=== PATIENT | male | born 1975 | race Caucasian/White ===

== ENCOUNTER 2021-01-30 02:42 | Emergency (ER) | payer SELFPAY ==
[2021-01-30] MEDS ORDERED: Aspirin 81 MG Tab.Chew PO ONE (02:53)
[2021-01-30] MEDS ORDERED: Nitroglycerin 0.4 MG Tab.SL SL ONE (02:53)
[2021-01-30] MEDS ORDERED: Morphine 4 MG/ML Syringe IVPUSH ONE (02:53)
[2021-01-30] MEDS ORDERED: Ondansetron 4 MG/2 ML SDV IVPUSH ONE (03:08)
[2021-01-30] MEDS ORDERED: HYDROmorphone 1 MG/ML Syringe IVPUSH ONE ×4 (03:21→13:45)
[2021-01-30 03:31] LABS: BLOOD UREA NITROGEN,BUN 10 mg/dL (7.0-18.0); CARBON DIOXIDE,CO2 25.3 mmol/L (21.0-32.0); CHLORIDE,CL 98 mmol/L (98-107); GLUCOSE RANDOM 127 mg/dL (74-106); SODIUM,NA 133 mmol/L (136-148)
[2021-01-30] MEDS ORDERED: Iopamidol 755 Mg/ML 100 ML Bottle IVPUSH ONE (04:32)
--- NOTE | 2021-01-30 04:46 | CR ---
Indication: Chest pain Technique: Chest 1 view Comparison: None Findings/Impression: Cardiovascular and mediastinum: Heart size and vasculature are normal in caliber and appearance. Lungs and pleural space: No pleural effusion or pneumothorax. No focal consolidation. Bones and soft tissues: No acute findings. Dictated by Juice Guzmán MD @ 01/30/2021 4:46:11 AM (Electronically Signed)
--- NOTE | 2021-01-30 06:11 | EDM.PDOC ---
<Duong Duckworth - Last Filed: 01/30/21 06:49> ED HPI GENERAL MEDICAL PROBLEM - General Chief Complaint: Chest Pain Stated Complaint: CHEST PAIN Time Seen by Provider: 01/30/21 02:51 - History of Present Illness INITIAL COMMENTS - FREE TEXT/NARRATIVE: CHIEF COMPLAINT(S): Chest pain HISTORY OF PRESENT ILLNESS: This is a 45-year-old man without any significant past medical history who comes to the emergency department with a chief complaint of chest pain. The patient states that prior to arrival he started to experience chest pain which he describes as sharp, stabbing on the left side of his chest without any radiation. He states that it is constant and unrelenting. He states that he does not have any shortness of breath, diaphoresis, nausea or vomiting. He denies any melena or hematochezia. He denies any hematemesis or hemoptysis. He denies any recent travel, recent surgery or prior history of DVT or PE. He states that he was seen at the clinic and was given baclofen however that does not seem to be helping him. He states that the clinic told him to come into the emergency department for evaluation but he did not come in. He states in addition to this he has been experiencing a rash throughout his body which has been happening over the last 4 days. He denies any fevers, chills, cough, headache, neck pain or any other symptoms. REVIEW OF SYSTEMS: Constitutional: Denies fever, chills. Eyes: Denies eye pain Ears, Nose, Mouth, & Throat: Denies earache Cardiovascular: Positive for chest pain Respiratory: Denies shortness of breath Gastrointestinal: Denies Nausea, vomiting, diarrhea, hematochezia. Genitourinary: Denies hematuria Skin: Positive for rash MSK: Denies joint pain Neurological: Denies blurred vision Psychiatric: Denies depression PAST MEDICAL HISTORY: As per history of present illness and as reviewed below otherwise noncontributory. SURGICAL HISTORY: As per history of present illness and as reviewed below otherwise noncontributory. SOCIAL HISTORY: As per history of present illness and as reviewed below otherwise noncontributory. FAMILY HISTORY: As per history of present illness and as reviewed below otherwise noncontributory. EXAMINATION OF ORGAN SYSTEMS/BODY AREAS: Constitutional: Blood pressure was 148/113, heart rate 87, respiratory rate 24 with an oxygen saturation 100% on room air. Temperature 36.0 General: Young man who appears to be in a severe amount of pain. Psychiatric: Appropriate mood and affect. Eyes: No scleral icterus or conjunctival erythema ENMT: Moist mucous membranes. No pharyngeal erythema Cardiovascular: Regular, rate, and rhythm. No gallops, murmurs, or rubs. Bilateral upper extremity pulses symmetric and intact. No peripheral edema. No JVD. Respiratory: Lungs clear to auscultation bilaterally. No wheezes, rales, or rhonchi. Gastrointestinal: Soft, non-tender, non-distended. Normoactive bowel sounds Genitourinary: No suprapubic tenderness Musculoskeletal: Normal range of motion. Skin: There is a petechial rash throughout out the patient's entire body. Scattered purpura which is nontender and nonpalpable. Neurological: Alert, GCS 15 MEDICAL DECISION MAKING AND COURSE IN THE ED WITH INTERPRETATION/REVIEW OF DIAGNOSTIC STUDIES: This is a 45-year-old man without any significant past medical history who comes to the emergency department with acute onset severe chest pain with a petechial rash. At this time it is uncertain as to what is causing the patient's chest pain however given the patient's symptoms will obtain a cardiac work-up. In addition to this given the petechial rash will obtain coags and a CBC. EKG was obtained which did not reveal any acute signs of ischemia. Obtain a chest x-ray. Given the severe distress and pain that it patient is experiencing will obtain a CT angiogram of the chest, abdomen and pelvis for further evaluation of a possible dissection. We did provide the patient with 4 mg of IV morphine for pain. We will provide the patient with n itroglycerin 0.4 mg sublingual given the possibility of ACS. We will hold off on aspirin at this time given the possibility of dissection. The patient had some nausea with the morphine therefore we will provide the patient with 4 mg of IV Zofran. Patient continued to have severe amount of pain therefore we will provide the patient with 1 mg of Dilaudid. Laboratory: CBC reveals a leukocytosis of 13.25 with lymphocytic predominance. There is thrombocytopenia with a platelet count of 1. BMP reveals hyponatremia at 133, hyperglycemia at 127, hypocalcemia at 8.1 otherwise unremarkable. TSH i s normal. Troponin is negative. After CBC had resulted I did send off labs including coags, fibrinogen, D-dimer, LDH, liver function tests and a mono screen. Laboratory: D-dimer is elevated at 1.95, INR is 1.14, PTT is 28.3, fibrinogen is normal at 310. LDH is elevated at 441. [place] screen is negative. There is a transaminitis with an AST of 78, ALT of 143 and alkaline phosphatase of 125. Given the transaminitis and the lymphocytic predominance on CBC will obtain a hepatitis panel. The radiological images were viewed by myself along with reading the report from the radiologist. Chest x-ray does not reveal any acute cardiopulmonary process. On reevaluation the patient had continued abdominal pain therefore we will provide the patient with an additional dose of 1 mg of Dilaudid. I did discuss the results of his laboratory work-up at this time. [facility] pending CTA reads and final disposition. DISPOSITION: [facility] pending CTA reads and final disposition CONDITION: Serious PROCEDURES: None FINAL IMPRESSION(S)/DIAGNOSES: 1. Acute chest pain 2. Acute thrombocytopenia, likely secondary to ITP Duong Duckworth M.D. Left Chest Pain Score (Numeric/FACES): 10 - Related Data Allergies Allergy/AdvReac Type Severity Reaction Status Date / Time No Known Allergies Allergy Verified 01/30/21 02:59 Past Medical History - Past Health History Medical/Surgical History: Denies Medical/Surgical History - Infectious Disease History Infectious Disease History: Reports: Chicken Pox Social & Family History - Family History Family Medical History: No Pertinent Family History - Caffeine Use Caffeine Use: Reports: None - Recreational Drug Use Recreational Drug Type: Reports: Marijuana/Hashish Departure - Departure Disposition: DC/Tfer to [facility] 02 Clinical Impression: Acute ITP - Discharge Information Referrals: PCP,None [Primary Care Provider] - Forms: ED Department Discharge <Edward Og - Last Filed: 01/30/21 12:39> ED ROS GENERAL - Review of Systems Review Of Systems: Comprehensive ROS is negative, except as noted in HPI. ED EXAM, GENERAL - Physical Exam Exam: See Below Course - Vital Signs Last Recorded V/S: Last Vital Signs Temp 96.8 F L 01/30/21 03:00 Pulse 94 01/30/21 10:20 Resp 18 10/03/21 10:20 BP 128/94 H 10/03/21 10:20 Pulse Ox 95 01/30/21 10:20 - Orders/Labs/Meds Orders: Active Orders 24 hr Category Date Time Status Cardiac Monitoring [RC] . DIRECTED Care 01/30/21 02:49 Active Pulse Oximetry [RC] ASDIRECTED Care 01/30/21 02:49 Active HEPATITIS PANEL (4) [REF] Stat Lab 01/30/21 06:04 Received UA W/AHMET RFLX IF INDICATED [URIN] Stat Lab 01/30/21 10:26 Ordered Labs: Laboratory Tests 01/30/21 01/30/21 01/30/21 Range/Units 02:55 02:55 02:55 WBC 13.25 H (4.0-11.0) K/uL RBC 4.69 (4.50-5.90) M/uL Hgb 14.4 (13.0-17.0) g/dL Hct 40.4 (38.0-50.0) % MCV 86.1 (80.0-98.0) fL MCH 30.7 (27.0-32.0) pg MCHC 35.6 (31.0-37.0) g/dL RDW Std Deviation 38.8 (28.0-62.0) fl RDW Coeff of Kade 12 (11.0-15.0) % Plt Count 1 L* (150-400) K/uL Add Manual Diff YES Neutrophils % (Manual) 35 L (48.0-80.0) % Band Neutrophils % 4 % Lymphocytes % (Manual) 56 H (16.0-40.0) % Monocytes % (Manual) 4 (0.0-15.0) % Eosinophils % (Manual) 1 (0.0-7.0) % Nucleated RBC % 0.0 /100WBC Absolute Seg Neuts 4.6 (1.4-5.7) Band Neutrophils # 0.5 Lymphocytes # (Manual) 7.4 H (0.6-2.4) Monocytes # (Manual) 0.5 (0.0-0.8) Eosinophils # (Manual) 0.1 (0.0-0.7) Nucleated RBCs # 0 K/uL Smear Path Review INR APTT (18.6-31.3) SEC Fibrinogen (215-411) mg/dL D-Dimer, Quantitative (0.0-0.50) mg/L FEU Sodium 133 L (136-148) mmol/L Potassium 4.0 (3.5-5.1) mmol/L Chloride 98 (98-107) mmol/L Carbon Dioxide 25.3 (21.0-32.0) mmol/L BUN 10 (7.0-18.0) mg/dL Creatinine 1.1 (0.8-1.3) mg/dL Est Cr Clr Drug Dosing 89.41 mL/min Estimated GFR (MDRD) > 60.0 ml/min Glucose 127 H (74-106) mg/dL Calcium 8.1 L (8.5-10.1) mg/dL Magnesium 1.9 (1.8-2.4) mg/dL Total Bilirubin (0.2-1.0) mg/dL AST (15-37) IU/L ALT (14-63) IU/L Alkaline Phosphatase (46-116) U/L Lactate Dehydrogenase 441 H (81-234) U/L Troponin I < 0.050 (0.000-0.056) ng/mL TSH, Ultra Sensitive 1.00 (0.36-3.74) uIU/mL Monoscreen (NEG) SARS-CoV-2 RNA (JOSIANE) (NEGATIVE) 01/30/21 01/30/21 01/30/21 Range/Units 02:55 02:55 03:30 WBC (4.0-11.0) K/uL RBC (4.50-5.90) M/uL Hgb (13.0-17.0) g/dL Hct (38.0-50.0) % MCV (80.0-98.0) fL MCH (27.0-32.0) pg MCHC (31.0-37.0) g/dL RDW Std Deviation (28.0-62.0) fl RDW Coeff of Kade (11.0-15.0) % Plt Count (150-400) K/uL Add Manual Diff Neutrophils % (Manual) (48.0-80.0) % Band Neutrophils % % Lymphocytes % (Manual) (16.0-40.0) % Monocytes % (Manual) (0.0-15.0) % Eosinophils % (Manual) (0.0-7.0) % Nucleated RBC % /100WBC Absolute Seg Neuts (1.4-5.7) Band Neutrophils # Lymphocytes # (Manual) (0.6-2.4) Monocytes # (Manual) (0.0-0.8) Eosinophils # (Manual) (0.0-0.7) Nucleated RBCs # K/uL Smear Path Review SENT TO PATHOLOGY INR APTT (18.6-31.3) SEC Fibrinogen (215-411) mg/dL D-Dimer, Quantitative (0.0-0.50) mg/L FEU Sodium (136-148) mmol/L Potassium (3.5-5.1) mmol/L Chloride (98-107) mmol/L Carbon Dioxide (21.0-32.0) mmol/L BUN (7.0-18.0) mg/dL Creatinine (0.8-1.3) mg/dL Est Cr Clr Drug Dosing mL/min Estimated GFR (MDRD) ml/min Glucose (74-106) mg/dL Calcium (8.5-10.1) mg/dL Magnesium (1.8-2.4) mg/dL Total Bilirubin 1.0 (0.2-1.0) mg/dL AST 78 H (15-37) IU/L ALT 143 H (14-63) IU/L Alkaline Phosphatase 125 H (46-116) U/L Lactate Dehydrogenase (81-234) U/L Troponin I (0.000-0.056) ng/mL TSH, Ultra Sensitive (0.36-3.74) uIU/mL Monoscreen NEGATIVE (NEG) SARS-CoV-2 RNA (JOSIANE) (NEGATIVE) 01/30/21 01/30/21 01/30/21 Range/Units 03:30 05:25 06:30 WBC (4.0-11.0) K/uL RBC (4.50-5.90) M/uL Hgb (13.0-17.0) g/dL Hct (38.0-50.0) % MCV (80.0-98.0) fL MCH (27.0-32.0) pg MCHC (31.0-37.0) g/dL RDW Std Deviation (28.0-62.0) fl RDW Coeff of Kade (11.0-15.0) % Plt Count (150-400) K/uL Add Manual Diff Neutrophils % (Manual) (48.0-80.0) % Band Neutrophils % % Lymphocytes % (Manual) (16.0-40.0) % Monocytes % (Manual) (0.0-15.0) % Eosinophils % (Manual) (0.0-7.0) % Nucleated RBC % /100WBC Absolute Seg Neuts (1.4-5.7) Band Neutrophils # Lymphocytes # (Manual) (0.6-2.4) Monocytes # (Manual) (0.0-0.8) Eosinophils # (Manual) (0.0-0.7) Nucleated RBCs # K/uL Smear Path Review INR 1.14 APTT 28.3 (18.6-31.3) SEC Fibrinogen 310 (215-411) mg/dL D-Dimer, Quantitative 1.95 H (0.0-0.50) mg/L FEU Sodium (136-148) mmol/L Potassium (3.5-5.1) mmol/L Chloride (98-107) mmol/L Carbon Dioxide (21.0-32.0) mmol/L BUN (7.0-18.0) mg/dL Creatinine (0.8-1.3) mg/dL Est Cr Clr Drug Dosing mL/min Estimated GFR (MDRD) ml/min Glucose (74-106) mg/dL Calcium (8.5-10.1) mg/dL Magnesium (1.8-2.4) mg/dL Total Bilirubin (0.2-1.0) mg/dL AST (15-37) IU/L ALT (14-63) IU/L Alkaline Phosphatase (46-116) U/L Lactate Dehydrogenase (81-234) U/L Troponin I < 0.050 (0.000-0.056) ng/mL TSH, Ultra Sensitive (0.36-3.74) uIU/mL Monoscreen (NEG) SARS-CoV-2 RNA (JOSIANE) NEGATIVE (NEGATIVE) Meds: Medications Discontinued Medications Generic Name Dose Route Start Last Admin Trade Name Freq PRN Reason Stop Dose Admin Aspirin 324 mg 01/30/21 02:53 01/30/21 03:07 Aspirin 81 Mg Tab.Chew PO 01/30/21 02:54 324 mg ONETIME ONE Administration Hydromorphone HCl 1 mg 01/30/21 03:21 01/30/21 03:26 Hydromorphone 1 Mg/Ml Syringe IVPUSH 01/30/21 03:22 1 mg ONETIME ONE Administration Hydromorphone HCl 1 mg 01/30/21 06:31 01/30/21 06:41 Hydromorphone 1 Mg/Ml Syringe IVPUSH 01/30/21 06:32 1 mg ONETIME ONE Administration Hydromorphone HCl 1 mg 01/30/21 09:41 01/30/21 09:46 Hydromorphone 1 Mg/Ml Syringe IVPUSH 01/30/21 09:42 1 mg ONETIME ONE Administration Iopamidol 100 ml 01/30/21 04:32 01/30/21 04:45 Iopamidol 755 Mg/Ml 100 Ml Bottle IVPUSH 01/30/21 04:33 100 ml ONETIME ONE Administration Morphine Sulfate 4 mg 01/30/21 02:53 01/30/21 03:07 Morphine 4 Mg/Ml Syringe IVPUSH 01/30/21 02:54 4 mg ONETIME ONE Administration Nitroglycerin 0.4 mg 01/30/21 02:53 01/30/21 03:07 Nitroglycerin 0.4 Mg Tab.Sl SL 01/30/21 02:54 0.4 mg ONETIME ONE Administration Ondansetron HCl 4 mg 01/30/21 03:08 01/30/21 03:19 Ondansetron 4 Mg/2 Ml Sdv IVPUSH 01/30/21 03:09 4 mg ONETIME ONE Administration Prednisone 100 mg 01/30/21 10:02 01/30/21 10:19 Prednisone 20 Mg Tab PO 01/30/21 10:03 100 mg ONETIME ONE Administration - Re-Assessments/Exams Free Text/Narrative Re-Assessment/Exam: 01/30/21 07:40 CT imaging is grossly unremarkable. No thoracic or abdominal aortic aneurysm or dissection or intramural hematoma. There are some incidentally discovered pulmonary nodules. Patient does have mild splenomegaly. His pain currently is well controlled. I did reach out to our hospitalist Dr. Mcneal who recommends transfer to a higher level of care. 01/30/21 07:47 [facility] is full. Will reach out to transfer center for assistance in patient placement 01/30/21 08:10 [facility] [place] does not have bed availability 01/30/21 09:10 [facility] also do not have hematology available for a phone consult. 01/30/21 10:03 Spoke with hematology at [facility] who recommends 1mg/kg prednisone daily. Recommends platelets 1 or 2 units considering how low patient's platelets are. Unfortunately we do not have platelets in the hospital. Will continue reaching out to try and find acceptance. 01/30/21 10:49 Per transfer center all of the hospitals in [place] and [place] are full. I have reached out to [facility] which is on diversion. I reached out to [facility] which is on diversion. I have reached out to [facility] which is on diversion. I have reached out to [facility] which is on diversion. I reached out to [facility] which is on diversion. I have reached out to [facility] which is on diversion. I have reached out to see [facility] which is on diversion. I have reached out to [facility] which is on diversion. I have reached out to [facility] which will call back. 01/30/21 11:45 [facility] will accept patient for transfer of care. Departure - Departure Time of Disposition: 12:38 Condition: Serious Critical Care Note - Critical Care Note Total Time (mins): 40 Sepsis Event Note (ED) - Focused Exam Vital Signs: Vital Signs Temp Pulse Resp BP BP Pulse Ox 01/30/21 10:20 94 18 128/94 H 95 01/30/21 08:23 73 18 137/83 96 01/30/21 05:28 81 19 158/100 H 97 01/30/21 04:01 93 18 141/91 H 95 01/30/21 03:33 83 18 134/93 H 95 01/30/21 03:17 87 24 H 156/83 H 99 01/30/21 03:07 148/102 H 01/30/21 03:00 96.8 F L 87 24 H 148/113 H 100 - My Orders Last 24 Hours: My Active Orders 01/30/21 10:26 UA W/AHMET RFLX IF INDICATED [URIN] Stat - Assessment/Plan Last 24 Hours: My Active Orders 01/30/21 10:26 UA W/AHMET RFLX IF INDICATED [URIN] Stat
--- NOTE | 2021-01-30 06:51 | PCM.EKG ---
#1 Interpretation EKG Date: 01/30/21 Time: 02:46 Rhythm: NSR Rate (Beats/Min): 91 [place]: Normal P-Wave: Present QRS: Normal ST-T: Normal QT: Normal Comparison: NA - No Prior EKG EKG Interpretation Comments: SinuS Rhythm
--- NOTE | 2021-01-30 07:13 | CT ---
HISTORY: Chest and abdominal pain. TECHNIQUE: Initial noncontrast CT of the chest, abdomen and pelvis followed by intravenous contrast enhanced CT of the chest, abdomen and pelvis. 100 mL of Isovue-370 intravenous contrast was administered. COMPARISON: No prior. FINDINGS: Chest: There is no thoracic aortic aneurysm, dissection or intramural hematoma. The proximal arch vessels are patent. There is not sufficiently dense opacification of the pulmonary arterial circulation to evaluate for pulmonary embolism. No significant pericardial effusion. There are small nonspecific mediastinal and bilateral hilar lymph nodes. Mild paraseptal emphysematous changes. Dependent ground-glass opacity within the lower lobes likely relates to atelectasis. 6.5 mm noncalcified pulmonary nodule right lower lobe image #346. 4 mm right middle lobe micro nodule image #396. No pleural effusion or pneumothorax. --- Abdomen and pelvis: No focal liver parenchymal abnormality. Gallstone. The gallbladder measures under 4 cm diameter. Mild splenomegaly with the spleen measuring 13.5 cm. Adrenal glands normal. No focal pancreatic abnormality. Symmetric nephrograms. Sub cm low-density lesion at the inferior pole right kidney is too small to characterize though may represent a tiny cyst. There is no hydronephrosis. No obstructive urinary calculus. - No small bowel obstruction. No appendicitis. No diverticulitis. No fluid collection or free air. No abdominal aortic aneurysm. There is a small fat containing left inguinal hernia. Increased number of small melissa hepatis and portacaval lymph nodes. For example, melissa hepatis lymph node on image #593 measures 1.4 cm. - No abdominal aortic aneurysm, dissection or intramural hematoma. The mesenteric and renal arterial vasculature is patent. ---- Osseous structures: Mild sacroiliac joint degenerative changes. There degenerative changes of the spine. And no acute fractures. IMPRESSION: 1. No thoracic or abdominal aortic aneurysm or dissection or intramural hematoma. 2. A few pulmonary nodules, the largest within the right lower lobe measuring 6.5 mm[address] follow-up. 3. Mild paraseptal emphysematous changes. 4. Gallstone. Gallbladder measures under 4 cm in diameter. No biliary ductal dilatation. 5. Mild nonspecific melissa hepatis/portacaval lymphadenopathy. 6. Mild splenomegaly. 7. No bowel obstruction, appendicitis or diverticulitis. 8. Small fat containing left inguinal hernia. Please note that all CT scans at this facility use dose modulation, iterative reconstruction, and/or weight-based dosing when appropriate to reduce radiation dose to as low as reasonably achievable. Dictated by Ulises Willoughby MD @ 01/30/2021 7:11:11 AM (Electronically Signed)
[2021-01-30] MEDS ORDERED: predniSONE 20 MG Tab PO ONE (10:02)
== END 2021-01-30 14:04 ==
LOC: MW.ED 02:42
DX: R07.9 Chest pain, unspecified (principal); D69.3 Immune thrombocytopenic purpura; Z20.822 Contact with and (suspected) exposure to COVID-19
CPT/HCPCS: 36415; 71045; 71275; 74174; 80048; 80074; 82247; 83615; 83735; 84075; 84443; 84450; 84460; 84484; 85025; 85379; 85384; 85610; 85730; 86308; 87635; 88104; 93005; 96374; 96375; 96376; 99285; A9270; J1170; J2270; J2405; Q9967; U0002